=== PATIENT | male | born 1960 | race Caucasian/White ===

== ENCOUNTER 2016-11-08 08:42 | Inpatient (IN) ==
--- NOTE | 2016-11-08 10:03 | Diag Imaging Result Doc PS360 ---
KNEE 3 VIEWS LEFT - 11/08/2016 INDICATION: L knee pain TECHNIQUE: COMPARISON: None FINDINGS: Positioning is improper. No obvious fracture or dislocation. No joint effusion. IMPRESSION: Negative exam. Electronically signed by Aldair Coleman 11/08/2016 10:01 AM
[2016-11-08 10:04] LABS: BASO% 0.6 % (0.0-0.8); EOS# 0.09 X1000 (0.0-0.7); EOS% 0.4 % (0.0-10.0); HEMATOCRIT 34.8 % (42.0-52.0); HEMOGLOBIN 12.1 g/dL (14.0-18.0); IMM GRAN# 0.65 X1000 (0.0-0.04); IMM GRAN% 2.9 % (0.0-0.5); LYMPH# 1.69 X1000 (1.2-3.4); LYMPH% 7.5 % (20.5-51.1); MANUAL DIFF NEEDED? NO; MCH 29.7 PG (27-31); MCHC 34.8 g/dL (33-37); MCV 85.3 FL (81-99); MONO% 6.2 % (1.7-9.3); MPV 9.9 FL (7.4-10.4); NEUT% 82.4 % (42.2-75.2); PLT 485 X1000 (130-400); RBC 4.08 XMIL (4.7-6.1)
--- NOTE | 2016-11-08 10:06 | Diag Imaging Result Doc PS360 ---
CHEST-2 VIEWS - 11/08/2016 INDICATION: SOB TECHNIQUE: COMPARISON: None FINDINGS: Positioning is suboptimal. There is suggestion of an opacity at the medial left lung apex. The appearance is indeterminate. There is also some linear opacity/atelectasis in the left lung base. The right lung is well expanded and clear. Heart size is normal. IMPRESSION: Possible opacity at the medial left lung apex. Follow-up exam recommended. Electronically signed by Aldair Coleman 11/08/2016 10:03 AM
[2016-11-08 10:14] LABS: INR 1.07; PROTIME 11.3 Seconds (9.2-11.7); PTT 27.5 Seconds (22.0-36.0)
--- NOTE | 2016-11-08 10:52 | EKG Report ---
Test Performed on : 11/08/2016 09:59:15 AM Test Reason : Chest Pain Blood Pressure : / mmHG Vent. Rate : 103 BPM Atrial Rate : 103 BPM P-R Int : 122 ms QRS Dur : 088 ms QT Int : 352 ms P-R-T Axes : 047 072 049 degrees QTc Int : 461 ms Sinus tachycardia. Otherwise normal ECG No previous ECGs available Unconfirmed Result
[2016-11-08 11:17] LABS: AGAP 19; ALBUMIN 2.5 g/dL (3.5-5.0); ALKALINE PHOSPHATASE 281 U/L (32-122); BUN 23 mg/dL (8-22); CALCIUM 9.8 mg/dL (8.8-10.2); CHLORIDE 95 mmol/L (98-107); CK PROFILE 21 U/L (24-204); COSMO 285; GOT 13 U/L (10-34); GPT 12 U/L (10-44); POTASSIUM 5.1 mmol/L (3.5-5.1); SODIUM 135 mmol/L (136-145); TCO2 21 mmol/L (25-35); TOTAL BILIRUBIN 0.48 mg/dL (0.20-1.00); TOTAL PROTEIN 7.3 g/dL (6.3-8.3)
[2016-11-08] MEDS ORDERED: ZOSYN 3.375 GM/NS 3.375 GM/50 ML IVPB IV ONE (12:22)
[2016-11-08] MEDS ORDERED: VANCOMYCIN 1 GM/NS 1 GM/250 ML IVPB IV ONE ×2 (12:22→18:00)
--- NOTE | 2016-11-08 12:24 | Diag Imaging Result Doc PS360 ---
EXAM: HEAD W/WO NECK/THOR/ABD/PEL W HISTORY: SPARROW/neck swelling/trouble swallowing/wt loss TECHNIQUE: Dose reduction technique COMPARISON: None. FINDINGS: Head with and without: No parenchymal hemorrhage. No epidural or subdural hematoma. No subarachnoid hemorrhage. No mass identified on this noncontrasted exam. No midline shift. No hydrocephalus. No sinus opacification. Neck with contrast: There is a multi lobulated subcutaneous and soft tissue lesion in the lower neck extending into the upper mediastinum. There are multiple internal septations within this in addition to several air bubbles. This begins just to the right of midline at the level of the mid thyroid and extends laterally into the left pectoralis muscle. No definite bone destruction. Inferiorly this extends to the manubrium. Chest with contrast. Multi lobulated complex lesion in the lower neck, upper chest and anterior mediastinum is again demonstrated. A 10 mm nodule is found inferiorly in the lingular segment of the left upper lobe. No other parenchymal abnormality. No pleural effusions. No thoracic aortic aneurysm or dissection. No cardiomegaly. No enlarged mediastinal or hilar lymph nodes. Abdomen and pelvis with oral and intravenous contrast: There is fatty infiltration of the liver. Normal spleen, pancreas, gallbladder, and adrenal glands. There are small focal areas of abnormal enhancement within each kidney. No hydronephrosis. Normal aorta. No bowel obstruction. Normal appendix. No abscess. No free air. No enlarged lymph nodes. The urinary bladder is moderately distended and appears normal. IMPRESSION: Head: No hemorrhage or mass. Negative exam. NECK: Abscess appearing lesion in the lower neck, anterior chest and mediastinum. This could represent a mucomycosis infection. CHEST: Solitary noncalcified nodule in the left upper lobe Abdomen and pelvis: 1.Findings consistent with pyelonephritis 2.Fatty infiltration of the liver 3.Constipation A preliminary report was called to the emergency room Electronically signed by Gaston Nelson 11/08/2016 12:21 PM
--- NOTE | 2016-11-08 12:54 | PROVIDER DOCUMENTATION ---
This chart was entered by Malina Morrison Scribe, acting as scribe for Cheryle Perez MD. HPI-General Adult - General Chief Complaint: General Adult Stated Complaint: KNOT ON NECK Time Seen by Provider: 11/08/16 09:00 Source: patient Allergies/Adverse Reactions: Patient Allergies Allergy/AdvReac Type Severity Reaction Status Date / Time No Known Allergies Allergy Verified 11/08/16 09:19 Home Medications: Home Medication List Medication Instructions Recorded Confirmed Last Taken Type Atorvastatin Calcium 20 mg PO DAILY 11/08/16 11/08/16 11/07/16 21:00 History 20 MG Dapagliflozin Propanediol [Farxiga] 10 mg PO DAILY 11/08/16 11/08/16 11/08/16 06 :30 History 10 MG Diclofenac Sodium 50 mg PO TID 11/08/16 11/08/16 11/08/16 06:30 History 50 MG Doxycycline 100 mg PO BID 11/08/16 11/08/16 11/08/16 06:30 History 100 MG Gabapentin 300 mg PO TID 11/08/16 11/08/16 11/08/16 06:30 History 300 MG Meclizine HCl [Antivert] 25 mg PO BID PRN 11/08/16 11/08/16 11/07/16 21:00 History 25 MG Metformin HCl 1,000 mg PO DAILY 11/08/16 11/08/16 11/08/16 06:30 History 1000 MG Metoprolol [Lopressor] 25 mg PO DAILY 11/08/16 11/08/16 11/08/16 06:30 History 25 MG Naproxen 500 mg PO DAILY 11/08/16 11/08/16 11/08/16 06:30 History 500 MG Tizanidine HCl [Zanaflex] 4 mg PO HS 11/08/16 11/08/16 11/07/16 21:00 History 4 MG - History of Present Illness -Gen Adult Nature of Presenting Problems: 56 yo M presents to the ER with complaint of knot of L side of neck. Started with trouble swallowing, denies difficulty breathing. States he had L knee pain x2 weeks ago after going to the chiropractor, took an xray and stated it was arthritis. States he has not eaten much in the last two weeks due to difficulty swallowing and has lost 10-15 pounds. Also complains of neck pain and SPARROW. Onset/Duration: reports: 1 week ago Associated Symptoms: reports: weakness. denies: chest pain, shortness of breath Review of Systems - Adult - REVIEW OF SYSTEMS - ADULT Constitutional: denies: chills, fever Eyes: reports: no symptoms reported Ears, Nose, Mouth & Throat: reports: no symptoms reported Cardiovascular: denies: chest pain, palpitations Respiratory: denies: cough, shortness of breath Gastrointestinal: denies: diarrhea, nausea, vomiting Genitourinary: reports: no symptoms reported Musculoskeletal: reports: joint pain, joint swelling Integumentary: reports: no symptoms reported Neurological: reports: no symptoms reported Psychiatric: reports: no symptoms reported Endocrine: reports: no symptoms reported Hematologic/Lymphatic: reports: no symptoms reported Allergic/Immunologic: reports: no symptoms reported All Other Systems: Reviewed and Negative Past History - Adult - PAST MEDICAL HISTORY-ADULT Review of Records: reports: Nursing Assessment Review, Medications Reviewed Cardiovascular: reports: HTN, hyperlipidemia Endocrine/Immune: reports: Diabetes - IMMUNIZATION STATUS Childhood Immunizations: See Nurse Assessment Flu Vaccine: See Nurse Assessment - SOCIAL HISTORY Smoking: non-smoker Substance Use: none/never Alcohol Use Frequency: never Physical Exam-General - PHYSICAL EXAM-ADULT Initial Vital Signs Reviewed: Yes - CONSTITUTIONAL General Appearance: alert, no apparent distress - EYES Eyes: PERRL/EOMI, pink conjunctivae - HEAD, EARS, NOSE, MOUTH & THROAT HENMT: normocephalic/atraumatic, normal ENT inspection, TMs normal, pharynx normal - NECK Neck: supple, other (golf ball size suprasternal knot on L side, below clavicle , not fluctant). negative: C-spine tenderness, limited range of motion - RESPIRATORY Respiratory: no respiratory distress, no accessory muscle use - CARDIOVASCULAR Cardiovascular: normal peripheral pulses, regular rate, rhythm - GASTROINTESTINAL (ABDOMEN) Abdominal Exam: normal bowel sounds, non tender, soft - LYMPHATIC Lymphatic: no adenopathy. negative: axilla node tender, inguinal node tender, enlargement, striations, streaking - MUSCULOSKELETAL Back Exam: no CVA tenderness, no vertebral tenderness Extremity: normal range of motion, non-tender, normal gait, normal inspection - SKIN Integumentary: normal color, warm/dry, erythema (suprasternal k not), tenderness (suprasternal knot) - NEUROLOGIC Neurologic: grossly normal, no motor/sensory deficits - PSYCHIATRIC Psych/Mental Status: normal mood/affect, normal thought content, normal thought process, oriented x 3 Progress - PLAN OF CARE/RESULTS Progress/Plan/Lab Results: Vital Signs - 8 hr 11/08/16 08:50 Temperature 97.4 F L Pulse Rate 110 H Respiratory Rate 18 Blood Pressure 123/77 O2 Sat by Pulse Oximetry 100 Orders Category Date Time Status Cardiac Monitoring DIRECTED Care 11/08/16 09:37 Active Saline Loc NOW Care 11/08/16 09:37 Active CHEST-2 VIEWS [RAD] Stat Exams 11/08/16 09:37 Ordered HEAD/C-SPINE/THORAX/PELVIS/ABD [CT] Stat Exams 11/08/16 09:36 Ordered KNEE 3 VIEWS LEFT [RAD] Stat Exams 11/08/16 09:36 Ordered CBC WITH ELECTRONIC DIFF [HEME] Stat Lab 11/08/16 09:37 Uncollected CK PROFILE [SP CHEM] Stat Lab 11/08/16 09:37 Uncollected COMPREHENSIVE METABOLIC PANEL [CHEM] Stat Lab 11/08/16 09:37 Uncollected D-DIMER [CHEM] Stat Lab 11/08/16 09:37 Uncollected MAGNESIUM [CHEM] Stat Lab 11/08/16 09:37 Uncollected PRO B-NATRIURETIC PEPTIDE Stat Lab 11/08/16 09:37 Uncollected PROTIME WITH INR [COAG] Stat Lab 11/08/16 09:37 Uncollected PTT [COAG] Stat Lab 11/08/16 09:37 Uncollected TROPONIN T Stat Lab 11/08/16 09:37 Uncollected EKG [EKG] Stat Ther 11/08/16 09:37 Ordered Result Diagrams: 11/08/16 09:50 11/08/16 10:33 - EKG 1 Time of EKG reading by physician:: 09:59 EKG Read and Signed by:: Cheryle Perez EKG Interpretation (*Must complete 3 of following elements*): Abnormal Rate: 103 Rhythm: sinus tach [place]: normal QRS: normal [place] Interval: normal ST Wave: normal - XRAY 1 XRAY: Left XRAY Study: Knee Impression: Normal (negative, per radiologist) 2 XRAY Study: Chest Impression: Abnormal (possible opacity at the medial L lung apex, follow up exam recommended, per radiologist) - CT/MRI 1 CT Study: Head Impression: Normal (negative, per radiologist), Discussed w/Radiology 2 CT Study: Neck Impression: Abnormal (abscess appearing lesion in lower neck, anterior chest and mediastinum. This could represent a mucomycosis infection. Per Radiologist ), Discussed w/Radiology 3 CT Study: other (Chest) Impression: Abnormal (Solitary noncalcified nodule in L upper lobe. Per radiologist), Discussed w/Radiology 4 CT Study: Abdomen, Pelvis Impression: Abnormal (findings consistent with pyelonephritis, fatty infiltration of the liver, constipation. Per radiologist), Discussed w/ Radiology - CONSULTS/PCP/HOSPITALIST Notification #1 *Consult/PCP/Hospitalist*: Dr. Hawk Time Discussed: 12:23 Consult Disposition: Admit #2 Consult: Hospitalist - Dr. Waldron Time Discussed: 12:30 Consult Disposition: Admit Departure - Departure Date of Disposition Decision: 11/08/16 Time of Disposition Decision: 12:52 DIAGNOSIS: Neck abscess, Pyelonephritis Disposition: ADMITTED INPATIENT 09 Certified Medical Emergency: Emergent Condition: Stable Referrals and Follow-Ups: Fernando Ray MD [Primary Care Provider] - - Critical Care Note This patient required my direct & personal management of CC.: No This chart was documented by the indicated scribe, (Malina Morrison Scribe) and accurately reflects the services I performed and decisions made by me, Cheryle Perez MD, as attested by the provider's signature.
[2016-11-08 13:41] LABS: URINE CULTURE NEEDED? NO; URINE MICRO REVIEW NEEDED? NO; URINE SOURCE CLEAN CATCH
[2016-11-08 13:44] LABS: UR EPITHELIAL CELLS <10 /HPF (<10); URINE BACTERIA NEGATIVE /HPF; URINE RBC <10 /HPF (<10); URINE WBC <10 /HPF (<10)
[2016-11-08 13:45] LABS: BILIRUBIN URINE NEGATIVE (NEGATIVE); BLOOD URINE NEGATIVE (NEGATIVE); COLOR YELLOW; GLUCOSE URINE >1000 mg/dL (NEGATIVE); LEUKOCYTES URINE NEGATIVE (NEGATIVE); NITRITE URINE NEGATIVE (NEGATIVE); PH URINE 5.5; PROTEIN URINE TRACE mg/dL (NEGATIVE); TURBIDITY URINE CLEAR (CLEAR); UROBILINOGEN URINE NORMAL (NORMAL)
[2016-11-08 13:49] LABS: SP GRAVITY URINE < 1.005
[2016-11-08 14:45] LABS: IRON SATURATION 21 %; TIBC 190 ug/dL; TOTAL IRON 39 ug/dL (53-167); UNBOUND IRON 151 ug/dL (112-346)
--- NOTE | 2016-11-08 15:55 | HISTORY AND PHYSICAL ---
PRIMARY CARE PROVIDER: Fernando Ray MD. CHIEF COMPLAINT: A knot with pain in the neck, difficulty swallowing, sore throat. HISTORY OF PRESENT ILLNESS: Mr. Rui Gold is a 56-year-old, male with a medical history of hypertension, diabetes mellitus type 2, hyperlipidemia, who presents today with swelling in his neck, sore throat, difficulty swallowing, shortness of breath. Apparently, around 2 weeks ago he started having some left knee pain. He presented to [facility] in which he was prescribed diclofenac, Zanaflex for arthritis. Prior to being sent home he also told them that he was having a sore throat but I am not sure if it was fully worked up. This past Friday he noticed swelling around his neck and in his chest that he states he had not noticed prior. He presented to [facility] last Friday in which they performed an x-ray and sent him home with doxycycline and naproxen. The swelling increased. He went to work and they all noticed it , and they sent him to the ER. He has associated symptoms of dysphagia which started approximately 2 weeks ago, shortness of breath with activity, pain in the neck area but denies fever or chills. He does state he has some nausea but no vomiting and he has no other complaints. Workup here per CT revealed that he had an abscess of the lower neck, anterior chest, mediastinum, and a left upper lobe nodule. There was a question of whether it is a mucormycosis infection. Other CT findings revealed pyelonephritis, liver steatosis and constipation. His vital signs are stable. He is in no distress at this time. He does have a white blood cell count of 22,000 and platelet count of 485,000. He is diabetic and his blood glucose was 303 on admit. Given the risk of reactive airway disease and that this abscess is so close to his throat causing dysphagia and shortness of breath, we will go ahead and admit him to CICU. PAST MEDICAL HISTORY: Hypertension, diabetes mellitus type 2, hyperlipidemia, arthritis. PAST SURGICAL HISTORY: Nephrolithiasis and right shoulder tissue biopsy secondary to bursitis. He had a colon biopsy in 2012. He also had right shoulder rotator cuff repair. SOCIAL HISTORY: Denies tobacco, alcohol or illicit drug use. 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 FAMILY HISTORY: Father has Karen Gehrig's. Brother has diabetes. Uncle had an unknown cancer that he from. REVIEW OF SYSTEMS: Fourteen point review of systems were complete and all were negative except for those mentioned in above HPI. Patient does state that he has had a decreased appetite and a 10-15 pound weight loss in 2 weeks. ALLERGIES: No known drug allergies. HOME MEDICATIONS: Atorvastatin 20 mg p.o. daily, Farxiga 10 mg p.o. daily, diclofenac sodium 50 mg p.o. t.i.d., doxycycline 100 mg p.o. twice daily, Neurontin 300 mg p.o. 3 times a day, Antivert 25 mg p.o. twice daily, metformin 1000 mg p.o. daily, metoprolol 25 mg p.o. daily, naproxen 500 mg p.o. daily, Zanaflex 4 mg p.o. nightly. PHYSICAL EXAMINATION: VITAL SIGNS: Temperature 97.4 degrees, heart rate 102, respiratory rate 18, blood pressure 123/76, O2 saturation 95-100% on room air. 5 feet 10 inches tall, 165 pounds. BMI 23.7. GENERAL: Mr. Rui Gold is a 56-year-old male who is in no acute distress. He is able to answer questions appropriately. HEENT: Atraumatic, normocephalic. Pupils equal, round, reactive to light. Extraocular movements intact. Mucous membranes are moist. NECK: Mild jugular distention. Negative for carotid bruits. Large amount of swelling over the area of the thyroid and lower neck that extends into the left chest that is hard upon palpation. CARDIOVASCULAR: S1, S2. Regular rate and rhythm. No rubs, gallops, or murmurs. PULMONARY: Clear to auscultation. Bilateral breath sounds. No accessory muscle use or work of breathing noted. GASTROINTESTINAL: Soft, nontender, nondistended. Positive bowel sounds x4. EXTREMITIES: No edema noted. +2 dorsalis and radial pulses. SKIN: Warm, dry, intact except there is redness around the neck area, and around this area there appears to be an abscess with a little warmth noted. NEUROLOGIC: Alert and oriented x4. Moves all extremities equally. LABORATORY DATA: White blood cells 22,000, hemoglobin 12, hematocrit 34, platelet count 485,000. INR is 1.07, PTT is 27.5, D-dimer 0.92. Sodium 135, potassium 5.1, BUN 23, creatinine 0.8, glucose 303, magnesium 2.0, iron 39, total iron binding capacity 190, saturation 21, unsaturation 151, total bilirubin 0.48, AST 13, ALT 12, alkaline phosphatase 281, CK 21, troponin less than 0.01. Albumin 2.5, pre-albumin is 9.5, cortisol 19.2. Urinalysis: Trace protein, greater than 1000 glucose, 150 ketones. IMAGIN. EKG: Sinus tachycardia, rate 103. 2. Chest x-ray: Possible opacity at the medial left lung apex. 3. Left knee x-ray: Negative examination. ' 4. Head, neck, chest, abdomen, pelvis CT: Head: Negative examination. Neck: Abscessed appearing lesion in the lower neck, anterior chest and mediastinum which could represent a mucormycosis infection. 5. Chest CT: Solitary noncalcified nodule at the left upper lobe. 6. Abdominopelvic CT: Findings consistent with pyelonephritis, fatty infiltration of the liver and constipation. ASSESSMENT AND PLAN: 1. Abscess of the lower neck, anterior chest, mediastinum as evidenced by CT scan. There is question as to whether this is a mucormycosis infection. He does have leukocytosis although he is afebrile. The area around the neck and down the left chest is hard to palpate and is enlarged. Will cover with Vancomycin and Zosyn for now. Dr. Hawk has been consulted and Dr. Dykes has been consulted. We will follow up on an HIV testing. 2. Pyelonephritis: Antibiotic coverage continued. He does have complaints consistent with burning on urination. 3. Liver steatosis: Liver enzymes are negative. 4. Constipation. We will add stool softener. 5. Hypertension. Currently blood pressure is stable. We will continue home medications. 6. Diabetes mellitus type 2. Pattern blood glucoses, sliding scale insulin, diabetic diet. 7. Hyperlipidemia. We will resume home medications. 8. DVT prophylaxis: SCDs. 9. Anemia which is a low-grade mild iron-deficiency anemia with iron level of 39. 10. Protein Calorie Malnutrition. Diabetic Diet; supplements with meals Dictated by SHELBIE Dubon for Raman Waldron MD cc: SHELBIE Dubon MD Gregory S. Cheatham, MD Seen and examined patient. I agree with the above plan. Patient with Anterior Neck abscess extending to mediastinum. NO immediate airway compromise. Continue with current antibiotics. I have discussed the case personally with Dr. Hawk. WES ACEVES
[2016-11-08] MEDS ORDERED: VANCOMYCIN IV PER PHARMACY MISC SCH (16:06)
[2016-11-08] MEDS ORDERED: ZOFRAN IV PRN (16:06)
[2016-11-08] MEDS ORDERED: ANTIVERT PO PRN (16:06)
[2016-11-08] MEDS: HUMULIN R SUBQ SCH ×2 (16:52→21:28)
[2016-11-08] MEDS: FLAGYL 500 MG/NS 500 MG/100 ML IVPB IV SCH ×2 (16:53→21:29)
[2016-11-08] MEDS: ZOSYN 3.375 GM/NS 3.375 GM/50 ML IVPB IV SCH (17:55)
--- NOTE | 2016-11-08 19:16 | CONSULTATION ---
DATE OF CONSULTATION: 11/08/2016 REQUESTING PHYSICIAN: Emergency Department. REASON FOR CONSULTATION: Neck abscess. HISTORY OF PRESENT ILLNESS: A 56-year-old male with medical history of hypertension, diabetes mellitus type 2, hyperlipidemia presented to the emergency department with neck swelling, sore throat with difficulty swallowing and some shortness of breath. The patient does report a vague history of having some left knee pain starting 2 weeks ago but also had a sore throat at that time. On Friday he started noticing swelling around his neck and chest that he had not previously noted. He had a chest x-ray done at that time and was sent home on antibiotics. The neck swelling increased. He still had some significant symptoms of dysphagia with some difficulty breathing. He came back to the emergency department and had a CT scan that showed an abscess of the lower neck, anterior chest mediastinum and left upper lobe nodule. There is some question about the potential for this infection. At the current time the patient is tender in the neck and left chest wall but he is in no acute respiratory distress. He was admitted to the [facility] given the potential for airway issues. I was asked to evaluate for the neck abscess. PAST MEDICAL HISTORY: Hypertension, diabetes mellitus type 2, hyperlipidemia, arthritis. PAST SURGICAL HISTORY: Lithotripsy, right shoulder surgery, previous colonoscopy with biopsy, right rotator cuff surgery. HOME MEDICATIONS: As in the hospitalist's note as dictated 11/08/2016 and reviewed by myself. ALLERGIES: None. SOCIAL HISTORY: Denies alcohol, tobacco or illicit drugs. He denies any kind of outside travel or drinking of well water. FAMILY HISTORY: Positive for Karen Gehrig's disease, diabetes. REVIEW OF SYSTEMS: A full 10 point review of systems was obtained and negative as specified in HPI. PHYSICAL EXAMINATION: Vital Signs: Patient is currently afebrile. He has a heart rate in the low 100s. Respiratory rate is nonlabored. Blood pressure stable. General Examination: No acute distress, male, looks stated age. HEENT: Normocephalic, atraumatic. Pupils equal, round, react to light. Mucous membranes moist. Oropharynx benign. Neck: Swelling over the area of the thyroid and lower neck that extends to the left chest wall. There appears to be some mild amount of fluctuance but it is hard and indurated, and there is some erythema associated with this that does extend onto the left chest wall. Cardiovascular: Mildly tachycardic. Lungs: Grossly clear. Abdomen: Soft, nontender, nondistended. Extremities: Moves all extremities well. Neurologic: Grossly intact. Skin: No signs of jaundice. Vascular: All extremities perfused. LABORATORY: White blood cell count 22, hematocrit 34, platelet count 485,000. CT scan independently reviewed and radiology report reviewed. Does have a neck abscess noted. ASSESSMENT AND PLAN: A 56-year-old male with a lower neck abscess extending into the anterior chest wall mediastinum by CT scan. 1. Abscess of the neck. At this time patient is on antibiotics. There is concern about the potential etiology of this infection. I suspect given its location and the potential for airway obstruction he needs to have this drained in the operating room with a secure airway. I discussed this with the patient. I will keep him NPO overnight just in case he has difficulty with his airway and I will plan for surgical intervention in the morning. The risks, benefits, and alternatives were discussed. All questions answered. 2. Pyelonephritis currently being covered by antibiotics. 3. Liver steatosis at this time. Monitor. 4. Constipation at this time. He has been placed on a stool softener. 5. Multiple medical comorbidities currently being managed by the hospitalist service. cc: MD Raman Burks MD
[2016-11-08] MEDS: PERICOLACE PO SCH (21:30)
[2016-11-08] MEDS: NEURONTIN PO SCH (21:30)
[2016-11-08] MEDS: ZANAFLEX PO SCH (21:30)
[2016-11-09] MEDS: ZOSYN 3.375 GM/NS 3.375 GM/50 ML IVPB IV SCH ×2 (00:28→05:57)
[2016-11-09] MEDS: FLAGYL 500 MG/NS 500 MG/100 ML IVPB IV SCH (02:42)
[2016-11-09 05:38] LABS: BASO% 0.7 % (0.0-0.8); EOS# 0.06 X1000 (0.0-0.7); EOS% 0.2 % (0.0-10.0); HEMOGLOBIN 11.6 g/dL (14.0-18.0); IMM GRAN# 1.24 X1000 (0.0-0.04); IMM GRAN% 5.1 % (0.0-0.5); LYMPH# 1.91 X1000 (1.2-3.4); LYMPH% 7.8 % (20.5-51.1); MANUAL DIFF NEEDED? YES; MCH 29.9 PG (27-31); MCHC 34.1 g/dL (33-37); MCV 87.6 FL (81-99); MONO# 1.79 X1000 (0.11-0.59); MONO% 7.3 % (1.7-9.3); NEUT% 78.9 % (42.2-75.2); PLT 566 X1000 (130-400); RBC 3.88 XMIL (4.7-6.1)
[2016-11-09 05:47] LABS: INR 1.09; PROTIME 11.5 Seconds (9.2-11.7); PTT 33.5 Seconds (22.0-36.0)
[2016-11-09 05:51] LABS: HEMOGLOBIN A1C 7.5 % (4.8-6.0)
[2016-11-09] MEDS: LOPRESSOR PO SCH (05:57)
[2016-11-09 06:01] LABS: AGAP 29; ALBUMIN 2.7 g/dL (3.5-5.0); ALKALINE PHOSPHATASE 272 U/L (32-122); BUN 21 mg/dL (8-22); CALCIUM 9.4 mg/dL (8.8-10.2); CHLORIDE 100 mmol/L (98-107); COSMO 283; GOT 14 U/L (10-34); GPT 11 U/L (10-44); MAGNESIUM 2.2 mg/dL (1.5-2.7); POTASSIUM 4.8 mmol/L (3.5-5.1); SODIUM 139 mmol/L (136-145); TCO2 10 mmol/L (25-35); TOTAL BILIRUBIN 0.39 mg/dL (0.20-1.00); TOTAL PROTEIN 7.5 g/dL (6.3-8.3)
[2016-11-09] MEDS: HUMULIN R SUBQ SCH ×4 (06:09→20:47)
--- NOTE | 2016-11-09 06:20 | PROGRESS NOTE ---
DATE: 11/09/2016 SUBJECTIVE: No major issues. OBJECTIVE: Vital Signs: Patient is currently afebrile. He is mildly tachycardic in the lower 100s. Otherwise, vital signs are stable. General: No acute distress. Neck: The area to his neck that was swollen seems about the same, maybe slightly bigger. The erythema has not seemed to spread. Cardiovascular: Mildly tachycardic. Lungs: Grossly clear. Abdomen: Soft, nontender, nondistended. Extremities: Moves all extremities. Neurologic: Grossly intact. Skin: As noted above. LABORATORY: White blood cell count 24, which is up from 22. Hematocrit 34, platelet count 566,000. ASSESSMENT AND PLAN: A 56-year-old male with neck abscess. Neck abscess. At this time, we will plan for surgical intervention and drainage. Further recommendations after the drainage. cc: MD Raman Burks MD
[2016-11-09 06:50] LABS: BANDS 18 % (0-1); LYMPHS 10 % (21-51); MONO 4 % (1-9)
[2016-11-09] MEDS ORDERED: DILAUDID ONE (09:05)
[2016-11-09 09:06] LABS: HIV ANTIBODY SCREEN SEE COMMENTS
--- NOTE | 2016-11-09 09:12 | OPERATIVE NOTE ---
PROCEDURE DATE: 11/09/2016 PREOPERATIVE DIAGNOSIS: Neck and mediastinal abscess. POSTOPERATIVE DIAGNOSIS: Neck and mediastinal abscess. PROCEDURE: Incision and drainage of neck and mediastinal abscess. SURGEON: Oziel Hawk MD. DATA MINER: None. ANESTHESIA: General endotracheal. INTRAOPERATIVE FINDINGS: Abscess contained at least 50 mL of purulence that tracked significantly down to the mediastinum right to the aortic arch in the innominate vein. All areas were bluntly dissect safely as possible. COMPLICATIONS: None at time of dictation. ESTIMATED BLOOD LOSS: 5 mL. SPECIMENS REMOVED: Culture from the wound. BRIEF HISTORY: The patient is a 56-year-old male presenting with a neck abscess that tracked to his mediastinum. It was felt the patient would benefit from drainage. The risks, benefits, and alternatives were discussed. All questions answered. DESCRIPTION OF PROCEDURE: After informed consent was obtained, patient brought to the operative theatre, transferred to the operating table and placed supine position. General endotracheal anesthesia was then performed without complication. A formal time-out was then performed confirming patient, date, and procedure. All were in agreement. At that time, attention turned to the neck. After this was prepped and draped in sterile fashion, we made a cruciate incision over the most enlarged area of the neck and encountered purulence which we sent for culture. We had to bluntly probe into several other cavities. These cavities tract under the sternum and the manubrium to the mediastinum. We dissected all the way 6 or 7 cm under the manubrium. I was able to palpate the aortic arch and the innominate vein. Given the risk of injuring these and potential causing pleural contamination, I elected not to break up any more loculations. We irrigated the area copiously. We sent cultures from the wound. We placed a half-inch iodoform gauze into the wound and packed it. The patient tolerated the procedure well and was transferred to the recovery room in stable condition. Postoperatively, we got a chest x-ray given the blunt dissection to the mediastinum to rule out pneumothorax. cc: MD Raman Burks MD
[2016-11-09] MEDS ORDERED: NAPROXEN 500 MG PO SCH (09:15)
[2016-11-09] MEDS ORDERED: VOLTAREN PO SCH (09:15)
[2016-11-09] MEDS ORDERED: DOXYCYCLINE PO SCH (09:15)
[2016-11-09] MEDS ORDERED: NON-FORMULARY MED PO SCH (09:15)
--- NOTE | 2016-11-09 09:42 | Diag Imaging Result Doc PS360 ---
EXAM: CHEST-PORTABLE HISTORY: drainage of mediastinal abscess TECHNIQUE: Portable upright AP COMPARISON: 11/08/2016 FINDINGS: No postprocedural pneumothorax. Soft tissue prominence along the aortic arch is similar to the prior exam. No pleural effusions identified. The cardiomegaly. The vessels are not distended. IMPRESSION: Stable chest. No postprocedural pneumothorax. Electronically signed by Gaston Nelson 11/09/2016 9:40 AM
[2016-11-09] MEDS: PRILOSEC PO SCH (10:08)
[2016-11-09] MEDS: LIPITOR PO SCH (10:09)
[2016-11-09] MEDS: NEURONTIN PO SCH ×3 (10:09→20:48)
[2016-11-09] MEDS: GLUCOPHAGE PO SCH (10:11)
[2016-11-09] MEDS: NON-FORMULARY MED PO SCH (10:12)
[2016-11-09] MEDS: PERICOLACE PO SCH ×2 (10:13→21:15)
[2016-11-09] MEDS ORDERED: MORPHINE IV PRN (11:26)
[2016-11-09] MEDS: VANCOMYCIN 1,700 MG in NS 250 ML IV SCH (11:58)
--- NOTE | 2016-11-09 12:44 | PROGRESS NOTE ---
DATE: 11/09/2016 SUBJECTIVE: This patient just came back from surgery. He is completely alert and oriented x3. He is breathing fine. He is not complaining of chest pain or shortness of breath. He is complaining of mild left knee discomfort/pain. He is swallowing fine and he is tolerating fluids. OBJECTIVE: Vital Signs: Temperature 97.9 degrees, pulse 114, respiratory rate 18, blood pressure 131/69, and oxygen saturation 100% on room air. HEENT: Head normocephalic. No trauma. PERRLA. Neck: He has a clean dressing. He just came back from surgery. The dressing is clean. No signs of active bleed. Since this patient just came back from surgery, I did not remove the dressing to check under this. Chest: Clear to auscultation. No wheezing. No rales. Abdomen: Soft, nontender, nondistended. No hepatosplenomegaly. Extremities: Mild left knee swelling and painful to palpation. It is not red and is not warm. Neurologic: The patient is alert and oriented x3. No focal deficits. LABORATORY: WBC 24.4, hemoglobin 11.6, hematocrit 34, platelets 566,000. Sodium 139, potassium 4.8, chloride 108, bicarbonate 10, BUN 21, glucose 150. Hemoglobin A1c is 7.5. Calcium 9.4, magnesium 2.2, albumin 2.7. ASSESSMENT AND PLAN: 1. Abscess at the level of the lower neck and anterior chest and mediastinum as evidenced by CT scan, status post incision and drainage. This patient just came back from surgery. He is not complaining of shortness of breath or dysphagia. We will continue with clear liquid diet and pain management. Continue with antibiotics. Dr. Dykes is following this patient. I will add morphine and [place] 5 to his medications, and will avoid more nephrotoxic medications. 2. Pyelonephritis. Continue with antibiotics. Infectious Disease Department is following this patient. 3. Left knee swelling. Orthopedic Surgery has been consulted. Probably will need to get some fluid from it. 4. Liver steatosis. Liver enzymes are negative, but alkaline phosphatase is elevated. We will keep an eye on that. 5. Constipation. Continue with stool softener. 6. Hypertension. Stable. 7. Type 2 diabetes. Continue with sliding scale insulin and pattern of blood sugar. 8. Hyperlipidemia: Continue with home medications. 9. Deep vein thrombosis prophylaxis provided by [facility]. 10. Anemia. Aware. Continue to monitor. cc: MD Raman Petty MD
--- NOTE | 2016-11-09 13:17 | ECHO REPORT ---
ORDER DATE: 11/09/2016 INTERPRETING PHYSICIAN: Dr. Luis Miguel Fernandez ECHOCARDIOGRAPHIC MEASUREMENTS: Interventricular septum: 1.2 cm. Left ventricular posterior wall: 1.0 cm. Diastolic diameter: 3.9 cm. Left atrium: 3.2 cm. Aortic root: 3.2 cm. SUMMARY OF THE 2-DIMENSIONAL IMAGIN. Normal left ventricular cavity size. Estimated ejection fraction of 60%. Endocardium not well visualized in all views. Aortic valve leaflets are trileaflet. Mitral valve was normal. Tricuspid valve was normal. 2. Pulmonic valve was normal. 3. There is mild mitral regurgitation. Mild tricuspid regurgitation. Peak velocity across the tricuspid valve was 2.7 m/sec. 4. Peak velocity across the aortic valve less than 2 m/sec. By Doppler studies there is no aortic stenosis or regurgitation. CONCLUSIONS: 1. Normal left ventricular cavity size. Estimated ejection fraction of 60%. There is no aortic stenosis or regurgitation. There is mild mitral regurgitation. 2. There is no pericardial effusion or obvious intracardiac mass or thrombus seen. cc: MD Ivan Sierra MD Raphael K. Quansah, MD
--- NOTE | 2016-11-09 15:13 | CONSULTATION ---
DATE OF CONSULTATION: 11/09/2016 CONCLUSION: The patient has a disseminated infection which is due to a gram-positive coccus which I think most likely will be identified as Staph aureus. He appears to have an abscess in his neck extending into his chest. He also has pain and swelling in his left knee and I think it is possible that he has a septic left knee arthritis. With many areas involve with this infection I think it is possible that he has endocarditis as well. Also he may have an immunoglobulin deficiency as well. The patient's CT scan shows that he may have pyelonephritis. His urinalysis showed no white cells or bacteria which I think would make a urinary tract infection unlikely. If he indeed does have a pyelonephritis then I suspect it would be the same organism that is in his bloodstream and presumably causing infection in his left knee. RECOMMENDATIONS: I agree with treating the patient with vancomycin. I think this can be used as a single agent pending final identification of the organism. I am going to draw immunoglobulin levels. I have also ordered an echocardiogram. I have requested that Dr. Garvin tomorrow consult on the patient and if he agrees with it to do an arthrocentesis. DISCUSSION: The patient tells me that approximately 2 weeks ago he began having some swelling in his neck and chest. He also had dysphagia. He was unable to the eat well and has lost about 15 pounds. He also had the simultaneous onset of pain and swelling in his left knee. The patient tells me that about a month or so ago he had an insect bite on his left leg that caused erythema but cleared spontaneously. Thus far, studies on the patient show a CBC with a white count of 24,490, hemoglobin 11.6, and platelet count of 566,000. Creatinine 0.9. The GFR is greater than 60. Liver function studies are normal except for an alkaline phosphatase of 27.2. Urinalysis did not show any white cells or bacteria. Blood cultures are growing gram-positive cocci. The urine culture is pending. CT scan of the neck and chest showed an abscess involving the neck and extending into the chest. There also was a left upper lobe nodule in the lung. The CAT scan also showed evidence of pyelonephritis. A Gram stain of the material obtained at surgery today also shows gram positive cocci. PAST MEDICAL HISTORY/REVIEW OF SYSTEMS: Eyes and Ears: Patient does not have any difficulty hearing or seeing. Neck and chest: See above with the description of swelling in the neck and the chest. Respiratory: No cough or shortness of breath. GI: The patient initially had a dysphagia and has lost weight as mentioned above. He does not have diarrhea and he has not noticed any blood in his stool. Genitourinary: No dysuria or flank pain. The patient also had nausea. Bones, joints, muscles: As mentioned above, the patient has pain in his knee and on exam it appeared to be swollen. Skin: No rash. As mentioned above, there was an insect bite on his left leg about a month ago. Endocrine: The patient is a diabetic but he does not have thyroid disease. Neurologic: No seizures or loss of motor or sensory function. The remainder of the patient's review of systems was completed and was negative. PREVIOUS HOSPITALIZATIONS AND OPERATIONS: He has had rotator cuff surgery on the right shoulder. He has had surgery for renal calculi. He has also had a biopsy of his colon. MEDICAL DISEASES: Positive for diabetes mellitus, hypertension, hyperlipidemia, and arthritis. INFECTIOUS DISEASE HISTORY: Negative for pneumonia and UTI. FAMILY HISTORY: Positive for diabetes mellitus, hypertension, myocardial infarction, and amyotrophic lateral sclerosis. SOCIAL HISTORY: The patient lives in [place]. He is single. He does not have any pets. 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 The patient does not smoke, drink alcoholic beverages or abuse drugs. MEDICATIONS: The patient's home medications include Zanaflex, naproxen, doxycycline, diclofenac, meclizine, gabapentin, metformin, atorvastatin, Lopressor, and Farxiga. PHYSICAL EXAMINATION: Vital Signs: Temperature is 97.5 degrees, pulse 114, respiration is 13, blood pressure 146/75. Patient is 5 feet 10 inches tall, and weighs 149 pounds. General: This is a somewhat ill-appearing, middle-aged male. He is in no acute distress. Head, eyes, ears, nose, and throat: Can hear my spoken words and see near objects. No drainage was noted from the nose or ears. There were no white patches on his tongue. Neck: No meningismus. Lungs: Clear to auscultation. Cardiovascular: Heart rate was regular. I did not hear a murmur. Abdomen: Soft and nontender. Bones, joints, muscles: There is some swelling in the left knee and when I passively moved the knee it was painful. Neurologic: Patient is alert. He can move his extremities. There is no tremor. His sensation is intact to touch. His memory as regarding his medical history appeared intact. Integument: No rash noted. Thank you for the consult. cc: Ivan Dykes MD
[2016-11-09] MEDS ORDERED: DIPRIVAN 1% ONE (15:57)
[2016-11-09] MEDS: ZANAFLEX PO SCH (20:48)
[2016-11-10 06:02] LABS: BASO% 0.5 % (0.0-0.8); EOS# 0.18 X1000 (0.0-0.7); HEMATOCRIT 32.8 % (42.0-52.0); HEMOGLOBIN 11.2 g/dL (14.0-18.0); IMM GRAN# 0.85 X1000 (0.0-0.04); IMM GRAN% 4.9 % (0.0-0.5); LYMPH# 1.54 X1000 (1.2-3.4); LYMPH% 8.9 % (20.5-51.1); MANUAL DIFF NEEDED? YES; MCH 29.9 PG (27-31); MCHC 34.1 g/dL (33-37); MCV 87.7 FL (81-99); MONO# 1.17 X1000 (0.11-0.59); MONO% 6.7 % (1.7-9.3); MPV 9.9 FL (7.4-10.4); PLT 529 X1000 (130-400); RBC 3.74 XMIL (4.7-6.1)
--- NOTE | 2016-11-10 06:15 | PROGRESS NOTE ---
DATE: 11/10/2016 SUBJECTIVE: Patient doing well. No major issues after his incision and drainage. He did have a chest x-ray after his incision and drainage which did not show a pneumothorax. OBJECTIVE: Vital Signs: Patient is currently afebrile. His vital signs are stable. General Examination: No acute distress. Neck: Less swollen. Packing removed. Some mild purulence still draining but overall, wound looks better. Cardiovascular: Regular rate and rhythm. Lungs: Grossly clear. Abdomen: Soft, nontender, nondistended. Extremities: Moves all extremities. Some mild swelling noted to the left knee. Vascular: All extremities perfused. Laboratory: CBC is currently pending. He did have blood cultures that a preliminary 1 has come back as gram-positive cocci. ASSESSMENT AND PLAN: A 56-year-old, male status post incision and drainage in a neck and mediastinal abscess, now with bacteremia. 1. Status post incision drainage of neck abscess. At this time, packing removed. We will keep him on antibiotics. We will allow for speciation of the microbes. It is okay for the patient to shower. We will monitor his wound. 2. Left knee swelling. By review of Dr. Dykes's note, it sounds like orthopedics is going to be consulted for potential arthrocentesis. 3. Bacteremia. At this time, patient is on antibiotics. Infectious disease is following. We will defer to them. cc: Oziel Hawk MD
[2016-11-10 06:18] LABS: AGAP 17; BUN 17 mg/dL (8-22); CALCIUM 9.3 mg/dL (8.8-10.2); CHLORIDE 100 mmol/L (98-107); COSMO 278; POTASSIUM 4.2 mmol/L (3.5-5.1); SODIUM 136 mmol/L (136-145); TCO2 19 mmol/L (25-35)
[2016-11-10] MEDS: VANCOMYCIN 1,700 MG in NS 250 ML IV SCH (06:18)
[2016-11-10] MEDS: HUMULIN R SUBQ SCH ×4 (06:44→21:33)
[2016-11-10 07:14] LABS: BANDS 4 % (0-1); LYMPHS 12 % (21-51); MONO 8 % (1-9)
[2016-11-10] MEDS: LOPRESSOR PO SCH ×2 (07:32→08:54)
[2016-11-10] MEDS: NEURONTIN PO SCH ×3 (08:52→21:32)
[2016-11-10] MEDS: PRILOSEC PO SCH (08:53)
[2016-11-10] MEDS: GLUCOPHAGE PO SCH (08:53)
[2016-11-10] MEDS: PERICOLACE PO SCH ×3 (08:53→22:07)
[2016-11-10] MEDS: LIPITOR PO SCH (08:54)
[2016-11-10] MEDS: NON-FORMULARY MED PO SCH (09:45)
--- NOTE | 2016-11-10 16:17 | CONSULTATION ---
DATE OF CONSULTATION: 11/10/2016 CHIEF COMPLAINT: Left knee pain. HISTORY OF PRESENT ILLNESS: A 56-year-old male who has been admitted to the hospital for sepsis and a mediastinal abscess. He was noted have some soreness and swelling over the left knee. I was consulted for aspiration and orthopedic evaluation to rule out sepsis of the knee. He reports no significant injury about the knee. He states this started hurting a little bit over the past week. He does report a history of arthritis about the knee. PAST MEDICAL HISTORY AND REVIEW OF SYSTEMS: Up-to-date and accurate per the hospital chart. PHYSICAL EXAM: Examination of left knee reveals a 1+ effusion. There is minimal redness or warmth. There is relatively good range of motion. He is stable on exam of the knee. There is a positive straight leg raise. ASSESSMENT: Synovitis in the knee. PLAN: Patient underwent aspiration of the knee roughly 8 mL of clear straw-colored fluid. This appeared to have no evidence of infection, was normal joint fluid appearance. It was sent for cultures for aerobic and anaerobic cultures. Currently I do not believe he has an infection about the knee. We sent the specimen off just to verify this. He can continue his IV antibiotics for his mediastinal abscess. cc: Pako Garvin MD
--- NOTE | 2016-11-10 16:24 | OPERATIVE NOTE ---
PROCEDURE DATE: 11/10/2016 PREOPERATIVE DIAGNOSIS: Synovitis left knee. POSTOPERATIVE DIAGNOSIS: Synovitis left knee. PROCEDURE: Aspiration left knee joint. SURGEON: Steve Garvin MD COMPLICATION: None. ANESTHESIA: None. OPERATION IN DETAIL: This 56-year-old male with sepsis and thoracic abscess reports soreness over the left knee. He had a noted 1+ effusion about the knee. The patient underwent sterile prep over the anterolateral aspect of the suprapatellar pouch with alcohol. An 18-gauge needle was introduced in the joint. Roughly 8 mL of clear joint colored fluid was obtained. The needle was withdrawn and a bandage placed over this without complication or bleeding. The specimen was sent for cultures for aerobic and anaerobic cultures. No complications were noted. cc: Pako Garvin MD
--- NOTE | 2016-11-10 17:18 | PROGRESS NOTE ---
DATE: 11/10/2016 SUBJECTIVE: This patient states that he is feeling better, he is complaining of mild pain at the level of the of the upper thoracic area. He denies nausea, vomiting, diarrhea, constipation. He states that he has been having loose stools and that this happens when he takes metformin 1000 mg twice a day. I decreased the dose to 500 twice a day. This is the dose that he takes at home. OBJECTIVE: Vital Signs: Temperature 98 degrees, pulse 99, respiratory rate 19, blood pressure 124/70, oxygen saturation 100% on room air. HEENT: Head normocephalic. No trauma. PERRLA. Neck: Supple. No JVD. He has a clean dressing. No signs of active bleed. Chest: He has some inflammation at the level of upper portion of the chest, clear to auscultation. No wheezing. Abdomen: Soft, nontender, nondistended. No hepatosplenomegaly. Extremities: Mild left knee swelling and painful to palpation and mobilization. It is not red. It is not warm. Neurological: The patient is alert and oriented x3. No focal deficits. LABORATORY: WBC 17.3, hemoglobin 11.2, hematocrit 32.8, platelets 529,000. Sodium 136, potassium 4.6, chloride 100, bicarbonate 19, BUN 17, creatinine 0.9, glucose 185, calcium 9.3. ASSESSMENT AND PLAN: 1. Abscess at the level of the lower neck and anterior chest and mediastinum as evidenced by CT scan status post incision and drainage. He is not complaining of shortness of breath or of dysphagia. He is having mild pain to palpation at the level of the upper chest with some inflamed area. At this point, we will continue with antibiotics. Dr. Dykes is following this patient. 2. Pyelonephritis. Continue with antibiotics. Infectious Disease Department is following this patient. 3. Left knee swelling. Orthopedic Surgery has been consulted and they did an arthrocentesis, pending resolved. 4. Liver steatosis, liver enzymes are negative, but alkaline phosphatase was a little bit elevated. I will ask for a CMP for tomorrow to monitor this. 5. Constipation. Continue with stool softener. 6. Hypertension, stable. 7. Type 2 diabetes. Continue with the sliding scale and pattern of blood sugar, metformin has been decreased to 500 mg p.o. twice a day. 8. Hyperlipidemia. Continue with home medication. 9. Deep venous thrombosis prophylaxis provided by [employer]. 10. Anemia, continue to monitor. cc: Altaf Gordon MD
[2016-11-10] MEDS ORDERED: GLUCOPHAGE PO SCH (21:00)
[2016-11-10] MEDS: TYLENOL PO PRN (21:33)
[2016-11-10] MEDS: ZANAFLEX PO SCH (21:33)
[2016-11-11] MEDS: VANCOMYCIN 1,700 MG in NS 250 ML IV SCH (01:02)
[2016-11-11 05:24] LABS: BASO% 0.9 % (0.0-0.8); EOS% 1.4 % (0.0-10.0); HEMATOCRIT 33.7 % (42.0-52.0); HEMOGLOBIN 11.7 g/dL (14.0-18.0); IMM GRAN# 0.64 X1000 (0.0-0.04); IMM GRAN% 4.6 % (0.0-0.5); LYMPH# 1.71 X1000 (1.2-3.4); LYMPH% 12.2 % (20.5-51.1); MANUAL DIFF NEEDED? YES; MCH 30.4 PG (27-31); MCHC 34.7 g/dL (33-37); MCV 87.5 FL (81-99); MONO# 1.43 X1000 (0.11-0.59); MONO% 10.2 % (1.7-9.3); MPV 9.9 FL (7.4-10.4); NEUT% 70.7 % (42.2-75.2); PLT 532 X1000 (130-400); RBC 3.85 XMIL (4.7-6.1)
[2016-11-11] MEDS: HUMULIN R SUBQ SCH ×5 (05:42→20:24)
--- NOTE | 2016-11-11 05:53 | EKG Report ---
Test Performed on : 11/09/2016 06:23:37 AM Test Reason : no order in [employer] Blood Pressure : / mmHG Vent. Rate : 114 BPM Atrial Rate : 114 BPM P-R Int : 092 ms QRS Dur : 098 ms QT Int : 350 ms P-R-T Axes : 041 072 035 degrees QTc Int : 482 ms Sinus tachycardia. with short [place] Otherwise normal ECG When compared with ECG of 08-NOV-2016 09:59, (Unconfirmed) [place] interval has decreased Confirmed by Jordon GAMA, Jamel Chowdary ([id number]) on 11/12/2016 8:25:50 AM
[2016-11-11 05:54] LABS: AGAP 16; BUN 12 mg/dL (8-22); CALCIUM 9.1 mg/dL (8.8-10.2); CHLORIDE 98 mmol/L (98-107); COSMO 278; POTASSIUM 4.4 mmol/L (3.5-5.1); SODIUM 137 mmol/L (136-145); TCO2 23 mmol/L (25-35)
[2016-11-11 06:03] LABS: EOS 2 % (1-10); LYMPHS 22 % (21-51); MONO 6 % (1-9)
--- NOTE | 2016-11-11 06:13 | PROGRESS NOTE ---
DATE: 11/11/2016 SUBJECTIVE: Patient doing okay. No major issues. OBJECTIVE: Vital Signs: Patient is currently afebrile. His vital signs are stable. Neck is less swollen but there is some area of swelling on his left clavicle, but the erythema has improved. Cardiovascular: Regular rate and rhythm. Lungs: Grossly clear. Abdomen: Soft, nontender, nondistended. LABORATORY: White blood cell count is 14, which is decreasing his blood cultures preliminary have Staph aureus in his neck, also has gram positive cocci, most likely Staph aureus. ASSESSMENT AND PLAN: A 56-year-old male status post incision and drainage. Neck with a mediastinal abscess, now with bacteremia. 1. Status post incision and drainage. Neck abscess. At this time, he is clinically doing well. He does have this area above his left collarbone which was not fluctuant on the initial day of operation and I could not drain anything in the operating room. We will need to watch this area and would recommend continued antibiotics although it come to the point where he could be discharged home on p.o. antibiotics. 2. Left knee swelling. Patient did have an aspiration done by Dr. Garvin. 3. Bacteremia. At this time, patient is on antibiotics likely the same organism in his neck. I will defer duration of antibiotics to Dr. Dykes. cc: Oziel Hawk MD
--- NOTE | 2016-11-11 07:00 | PROGRESS NOTE ---
DATE: 11/11/2016 PRESENT ILLNESS: The patient has an oxacillin sensitive Staphylococcus aureus bacteremia which originates from the abscesses in his neck and chest. He had some pain in his left knee and an effusion. However, it does not look like the knee is actually infected in view of the fact that when Dr. Garvin performed an arthrocentesis, the fluid that he pulled off the knee was clear. The patient's echocardiogram does not show evidence of endocarditis either. Exactly why the patient developed this is uncertain to me at this time. He did mention that he had an insect bite on his left leg that caused erythema but cleared. It would not seem to me that this is a likely place for the infection to have come from. MEDICATIONS: The patient is receiving vancomycin currently. PHYSICAL EXAMINATION: Vital Signs: Temperature is 97.8 degrees, pulse 95, respirations 20, blood pressure 117/60. General: This is a somewhat ill-appearing, middle-aged male. He is in no acute distress. Head, Eyes, Ears, Nose, and Throat: No drainage noted from the nose or ears. Neck: The patient's incision is somewhat erythematous and is draining purulent fluid. Chest: The patient has swelling in the upper part of the left chest. Lungs: Clear to auscultation. Cardiovascular: Regular heart rate. Abdomen: Soft and nontender. Extremities: The left knee is less swollen. LAB AND X-RAY: I do not see any new x-ray for today. An echocardiogram did not show any vegetations. Creatinine is 0.6. GFR is greater than 60. Antibody to HIV was negative. Immunoglobulin levels including IgG and IgA were normal. A culture from the left knee is pending. Blood culture is growing oxacillin sensitive Staphylococcus aureus. Culture from the neck is growing a gram positive coccus which has not yet been identified but almost certainly will be the same staphylococcus that is in the patient's blood. ASSESSMENT AND PLAN: I have switched the patient from vancomycin to cefazolin. I have ordered 2 blood cultures to be drawn tomorrow. As mentioned above, the culture from the patient's knee is pending. For now, I would treat the patient with intravenous Ancef for at least 2 weeks and probably longer. In view of the fact of the abscesses that he has in his neck and chest, he may well need 6 weeks of intravenous antibiotics. COMORBIDITIES: The patient's comorbidities is that he does have diabetes mellitus. That is about the only comorbidity I can see on the patient unless the insect bite he reported earlier was the cause of his infection. I doubt this is the situation though. cc: Ivan Dykes MD
[2016-11-11] MEDS: NEURONTIN PO SCH ×3 (08:30→20:16)
[2016-11-11] MEDS: KEFZOL 2 GM/D5W 2 GM/50 ML IVPB IV SCH ×3 (08:30→20:17)
[2016-11-11] MEDS: PRILOSEC PO SCH (08:30)
[2016-11-11] MEDS: LOPRESSOR PO SCH (08:30)
[2016-11-11] MEDS: PERICOLACE PO SCH ×3 (08:30→20:29)
[2016-11-11] MEDS: LIPITOR PO SCH (08:31)
[2016-11-11] MEDS: NON-FORMULARY MED PO SCH (09:39)
[2016-11-11] MEDS ORDERED: LR 1,000 ML ONE (10:12)
[2016-11-11] MEDS ORDERED: XYLOCAINE-MPF 2% ONE (10:12)
[2016-11-11] MEDS: CULTURELLE PO SCH ×2 (11:16→20:17)
[2016-11-11] MEDS ORDERED: IMODIUM PO ONE (13:04)
[2016-11-11] MEDS ORDERED: IMODIUM PO PRN (13:04)
[2016-11-11] MEDS: QUESTRAN LIGHT PO SCH ×2 (15:03→20:24)
--- NOTE | 2016-11-11 15:16 | ECHO REPORT ---
ORDER DATE: 11/08/2016 FINDINGS: 1. Right atrium is normal size at 3.5. 2. Mild tricuspid regurgitation. RV systolic pressure of 39. 3. Normal RV size and systolic function. 4. No significant pulmonic insufficiency. 5. Normal left atrial size at 3.2 cm. 6. There is no mitral prolapse. Mild mitral regurgitation. 7. Normal LV size, end-diastolic dimension of 3.9. Normal are. Mild left ventricular hypertrophy with a posterior and interventricular septal thickness is 0.8 and 1.2 cm respectively. Normal LV systolic function with a calculated EF of 60% with normal wall motion. 8. Aortic valve opens well. There is no evidence of stenosis or insufficiency. 9. Aorta appears normal visualized segments. 10. No pericardial effusion seen. cc: MD Patti Ibarra CRNP
--- NOTE | 2016-11-11 17:02 | PROGRESS NOTE ---
DATE: 11/11/2016 SUBJECTIVE: The patient states that he is having a little bit of pain in his left knee, but otherwise is feeling okay. The patient also reports that he has been having several bouts of diarrhea since admission. He denies having any abdominal pain. OBJECTIVE: Vital Signs: Temperature 97.8 degrees, blood pressure 123/65, heart rate 100, respirations 20, O2 saturations 100% on room air. General: This is an elderly male, lying in bed, in no acute distress. Head: Normocephalic, atraumatic. Heart: S1, S2. Normal. Tachycardic. Lungs: Clear to auscultation bilaterally. No wheezing, no rales. No rhonchi. Abdomen: Positive bowel sounds. Soft, nontender, nondistended. Extremities: No edema. No cyanosis. No calf tenderness. Neurologic: The patient is alert and oriented x3. LABORATORY: White blood cell count 14, hemoglobin 11, hematocrit 33, platelets 532,000. Sodium 137, potassium 4.4, chloride 98, CO2 23, BUN 12, creatinine 0.6, glucose 172, calcium 9.1. ASSESSMENT AND PLAN: 1. Neck abscess, status post incision and drainage secondary to methicillin sensitive Staphylococcus aureus. The patient has been switched to cefazolin. Further management as per Dr. Dykes. 2. Methicillin sensitive Staphylococcus aureus bacteremia. The patient is now on cefazolin as directed by Dr. Dykes. 3. Left knee synovitis. We will follow up on the results of the fluid culture from the knee. Continue on the current antibiotic therapy. 4. Diarrhea. Patient's stool by a is negative for Clostridium difficile. We will start the patient on Questran and p.r.n. Imodium. We will also add lactobacillus since the patient is on antibiotic therapy. 5. Diabetes mellitus type 2. Continue on sliding scale insulin. 6. Hypertension, controlled. Continue on metoprolol. 7. Deep vein thrombosis prophylaxis. We will start the patient on Lovenox. cc: Zaria Hart MD
[2016-11-11] MEDS: LOVENOX SUBQ SCH (17:06)
[2016-11-11] MEDS: ZANAFLEX PO SCH (20:17)
[2016-11-11] MEDS: TYLENOL PO PRN (20:23)
[2016-11-12] MEDS: NORCO-5 PO PRN ×3 (01:21→16:27)
[2016-11-12] MEDS: KEFZOL 2 GM/D5W 2 GM/50 ML IVPB IV SCH ×4 (03:03→20:54)
[2016-11-12 04:59] LABS: MANUAL DIFF NEEDED? NO
[2016-11-12 05:04] LABS: BASO% 0.5 % (0.0-0.8); EOS# 0.18 X1000 (0.0-0.7); EOS% 1.3 % (0.0-10.0); HEMATOCRIT 34.9 % (42.0-52.0); HEMOGLOBIN 11.9 g/dL (14.0-18.0); IMM GRAN# 0.32 X1000 (0.0-0.04); IMM GRAN% 2.3 % (0.0-0.5); LYMPH# 1.71 X1000 (1.2-3.4); LYMPH% 12.1 % (20.5-51.1); MCH 30.2 PG (27-31); MCHC 34.1 g/dL (33-37); MCV 88.6 FL (81-99); MONO# 1.26 X1000 (0.11-0.59); MONO% 8.9 % (1.7-9.3); MPV 9.9 FL (7.4-10.4); NEUT% 74.9 % (42.2-75.2); PLT 531 X1000 (130-400); RBC 3.94 XMIL (4.7-6.1)
[2016-11-12 05:44] LABS: AGAP 16; BUN 11 mg/dL (8-22); CHLORIDE 96 mmol/L (98-107); COSMO 284; POTASSIUM 3.7 mmol/L (3.5-5.1); SODIUM 138 mmol/L (136-145); TCO2 26 mmol/L (25-35)
--- NOTE | 2016-11-12 06:30 | PROGRESS NOTE ---
DATE: 11/12/2016 SUBJECTIVE: The patient is doing okay. No major issues. OBJECTIVE: Vital Signs: Patient is currently afebrile. His vital signs are stable. General: No acute distress. Neck: Less swollen. The area of his left clavicle appears to be less swollen also. The erythema is improving. Cardiovascular: Regular rate and rhythm. Lungs: Grossly clear. Abdomen: Soft, nontender, nondistended. LABORATORY: White blood cell count 14. He does have wound cultures that came back Staphylococcus aureus. He also is blood cultures that came back Staphylococcus aureus. ASSESSMENT AND PLAN: A 56-year-old male status post incision and drainage of neck abscess with mediastinal abscess now with bacteremia. 1. Status post incision and drainage. At this time, patient is clinically doing well. I do not think I have to do anything with his left collar bone. At this time, we will get the nurses to pack is every day, but just slightly. I suspect he will likely need a peripherally inserted central catheter line with long-term antibiotics. I suspect that a central line or Srivastava catheter in his neck would be quickly contaminated. I discussed this with Dr. Dykes. 2. Left knee swelling. So far negative workup. 3. Bacteremia at this time. See above, but likely the same organism as his neck. cc: Oziel Hawk MD
[2016-11-12] MEDS: HUMULIN R SUBQ SCH ×4 (06:47→20:54)
--- NOTE | 2016-11-12 06:49 | PROGRESS NOTE ---
DATE: 11/12/2016 PRESENT ILLNESS: The patient has an oxacillin sensitive Staphylococcus aureus bacteremia which appeared to originate from abscesses in the neck and chest. It should be noted that the infection in the neck and chest did come very close to involving the aorta and clavicle, and possibly sternum. Also, the patient had significant pain in his knee. There was a thought that possibly the knee was infected too but thus far the synovial fluid is sterile and the fluid that Dr. Garvin tello off was clear, thus making septic arthritis unlikely. MEDICATIONS: Yesterday, I switched the patient to Ancef 2 g IV every 8 hours. This will be day 1 of treatment with it. PHYSICAL EXAMINATION: Vital Signs: Temperature is 97.9 degrees, pulse 93, respirations 20, blood pressure 118/67. General: This is a fairly healthy-appearing, middle-aged male. He is in no acute distress. Thorax: The patient's incision at the top of his chest has purulent drainage. There also is some erythema at that area. Lungs: Clear to auscultation. Cardiovascular: Regular heart rate. Abdomen: Soft and nontender. Extremities: The left knee is less swollen than it was prior to the arthrocentesis. LAB AND X-RAY: The patient's CBC today shows a white count of 14,100, hemoglobin 11.9, and platelet count 531,000. Culture from the knee is sterile. Repeat blood cultures are negative. The patient's creatinine is 0.6. GFR is greater than 60. The patient had immunoglobulin levels drawn, and IgG and IgA were normal. Antibody to HIV was nonreactive. ASSESSMENT AND PLAN: I plan to treat the patient for 6 weeks with intravenous cefazolin starting today as day 1. I have put in a consult for [facility] to see the patient and supply his antibiotic. Repeat blood cultures were drawn today and if they are sterile, I will order for a PICC to be placed. I think once the patient has his PICC in place, from an infectious disease point of view, he could be discharged home to continue his intravenous antibiotic therapy. The patient's comorbidities, the main one is that he is diabetic. Also, the patient reported an insect bite on his leg earlier than his admission at this hospital and possibly a transient bacteremia occurred from that bite which possibly caused the patient to have the abscesses. I think this scenario would be unlikely, however. cc: Ivan Dykes MD
[2016-11-12] MEDS: NEURONTIN PO SCH ×3 (09:28→20:54)
[2016-11-12] MEDS: LIPITOR PO SCH (09:28)
[2016-11-12] MEDS: LOPRESSOR PO SCH (09:28)
[2016-11-12] MEDS: CULTURELLE PO SCH ×2 (09:28→20:54)
[2016-11-12] MEDS: QUESTRAN LIGHT PO SCH ×3 (09:28→16:27)
[2016-11-12] MEDS: PRILOSEC PO SCH (09:28)
[2016-11-12] MEDS: NON-FORMULARY MED PO SCH (09:29)
[2016-11-12] MEDS: PERICOLACE PO SCH ×2 (09:56→20:54)
--- NOTE | 2016-11-12 15:51 | PROGRESS NOTE ---
DATE: 11/12/2016 SUBJECTIVE: The patient is feeling well. He has no complaints. Still having pain with the abscesses. No fever no chills. No nausea, vomiting, or diarrhea. Packing was changed this morning. OBJECTIVE: Vital Signs: Blood pressure 113/66, pulse of 91, respirations 14, temperature 98.6 degrees, saturation of 97% on room air. General Appearance: Well-developed well-nourished thin white male in no acute distress. HEENT: Anicteric. Clear conjunctivae. Neck: No Packing and dressing in place at the clavicle centrally, mild drainage. Cardiovascular: S1, S2. Normal rate and rhythm. No murmur, rubs, or gallops. Pulmonary: Clear to auscultation bilaterally. GI: Soft, nontender, nondistended. Normoactive bowel sounds Musculoskeletal: No clubbing, cyanosis, or edema. LABORATORY: His white count today 14.1, hemoglobin 11.9, hematocrit of 34.9, platelets of 531,000. Chemistry: Sodium 138, potassium 3.7, chloride 96, bicarb is 26, BUN 11, creatinine 0.6, glucose of 263. ASSESSMENT AND PLAN: This is a 56-year-old white male, admitted to the hospital for an abscess on his chest. 1. Abscess, status post incision and drainage with packing. General Surgery is following. Culture grew out methicillin sensitive Staphylococcus aureus. The patient is on Ancef. Infectious Disease is following. Infectious Disease is not planning to do a antibiotics we will continue with dressing change for now and we will place a PICC for IV antibiotics. Probably going to be a few more days before the patient can go home. Make sure that we can get home health. The patient family has to pack the wound. 2. Hyperlipidemia. We will continue Lipitor. 3. History of vertigo. Continue Antivert. 4. Hypertension. Continue Lipitor. 5. Gastroesophageal reflux disease. Continue Prilosec. 6. Deep vein thrombosis prophylaxis. The patient on Lovenox. CODE STATUS: The patient is a full code.
[2016-11-12] MEDS: LOVENOX SUBQ SCH (16:27)
[2016-11-12] MEDS: ZANAFLEX PO SCH (20:54)
[2016-11-13] MEDS: KEFZOL 2 GM/D5W 2 GM/50 ML IVPB IV SCH ×6 (03:25→21:33)
[2016-11-13 05:05] LABS: MANUAL DIFF NEEDED? NO
[2016-11-13 05:44] LABS: AGAP 14; BUN 10 mg/dL (8-22); CALCIUM 8.8 mg/dL (8.8-10.2); CHLORIDE 95 mmol/L (98-107); COSMO 279; POTASSIUM 4.3 mmol/L (3.5-5.1); SODIUM 136 mmol/L (136-145); TCO2 27 mmol/L (25-35)
[2016-11-13 05:51] LABS: BASO% 0.4 % (0.0-0.8); EOS# 0.21 X1000 (0.0-0.7); EOS% 1.5 % (0.0-10.0); HEMATOCRIT 33.2 % (42.0-52.0); IMM GRAN# 0.27 X1000 (0.0-0.04); LYMPH# 1.49 X1000 (1.2-3.4); LYMPH% 10.8 % (20.5-51.1); MCH 29.9 PG (27-31); MCHC 33.1 g/dL (33-37); MCV 90.2 FL (81-99); MONO# 1.26 X1000 (0.11-0.59); MONO% 9.2 % (1.7-9.3); MPV 10.1 FL (7.4-10.4); NEUT% 76.1 % (42.2-75.2); PLT 503 X1000 (130-400); RBC 3.68 XMIL (4.7-6.1)
[2016-11-13] MEDS: NORCO-5 PO PRN (05:51)
--- NOTE | 2016-11-13 06:12 | PROGRESS NOTE ---
DATE: 11/13/2016 SUBJECTIVE: Patient doing well. No major issues. OBJECTIVE: Vital Signs: Patient is currently afebrile. His vital signs are stable. General Examination: No acute distress. Neck: Less swollen. Area in his left clavicle appears to be continuing to improve. Erythema overall is improving. Cardiovascular: Regular rate and rhythm. Lungs: Clear. Abdomen: Soft, nontender, nondistended. Laboratory: Pending as of right now. Blood cultures from the repeat blood cultures are still pending. ASSESSMENT AND PLAN: A 56-year-old, male status post incision and drainage of neck and mediastinal abscess, now with bacteremia. 1. Status post incision and drainage. At this time, the patient is doing well. We will continue wet-to-dry dressing changes. We will defer antibiotic duration and peripherally inserted central catheter line to Dr. Dykes. We are awaiting the new blood cultures. 2. Left knee swelling. So far negative workup. 3. Bacteremia at this time. See above. cc: Oziel Hawk MD
[2016-11-13] MEDS: HUMULIN R SUBQ SCH ×4 (06:25→21:33)
--- NOTE | 2016-11-13 06:59 | PROGRESS NOTE ---
DATE: 11/13/2016 PRESENT ILLNESS: Patient has an oxacillin sensitive Staphylococcus aureus bacteremia with associated abscesses in the neck and chest. The patient's left knee has gotten much worse. It is much more swollen and painful. Even though the synovial fluid obtained earlier was clear and the culture on it was negative, I still think the knee is infected. Possibly gout may be another possibility but I think infection is more likely. MEDICATIONS: The patient is on Ancef 2 g IV every 8 hours. This is day 2 of treatment with it. PHYSICAL EXAMINATION: Vital Signs: Temperature is 97.9 degrees, pulse 97, respirations 14, blood pressure 114/65. General: This is a fairly healthy-appearing, middle-aged male. He is in no acute distress. Thorax: The patient's drain site in the upper part of his chest still has purulent drainage but there is less erythema. The swelling on the chest also is persisting. Lungs: Clear to auscultation. Cardiovascular: Heart rate is regular. Abdomen: Soft and nontender. Extremities: The left knee now is more swollen than it had been and also it is more painful for the patient when he moves it. LAB AND X-RAY STUDIES: Repeat blood cultures are pending. Cultures from the knee thus far are sterile. CBC today shows a white count of 13,740, hemoglobin 11, and platelet count 503,000. Creatinine is 0.6. GFR is greater than 60. ASSESSMENT AND PLAN: The patient has Staphylococcus aureus bacteremia with abscesses in the chest. Since the abscesses were very near bone and the aorta, I think we should treat as if they were involved, which would mean 6 weeks of intravenous antibiotics. Furthermore, on the patient's left knee, I am going to ask Dr. Garvin if he would look at it again and possibly consider washing it out. If he will agree to that, I will send the fluid for cell count, culture, and crystals. I also last Dr. Garvin if he could get a synovial biopsy. Because I think the knee is involved, the patient also would need 6 weeks of intravenous antibiotics for this. The patient's main comorbidity is that he is diabetic. Possibly, there was an insect bite on his leg that may have been a portal of entry for the bacteremia. cc: Ivan Dykes MD
--- NOTE | 2016-11-13 08:21 | OPERATIVE NOTE ---
PROCEDURE DATE: 11/13/2016 PROCEDURE: Arthrocentesis left knee. PREOPERATIVE DIAGNOSIS: Synovitis left knee. POSTOPERATIVE DIAGNOSIS: Synovitis left knee. SURGEON: Steve Garvin MD. ANESTHESIA: None. COMPLICATION: None. PROCEDURE IN DETAIL: A 56-year-old male with recurrent synovitis of the left knee, presents for arthrocentesis. The risks and benefits were discussed. Patient is willing to proceed. The lateral aspect suprapatellar pouch was prepped with alcohol prep. An 18-gauge needle with a 20 mL syringe was then introduced in the joint. Roughly 24 mL of relatively clear straw-colored joint fluid was aspirated. This was then removed and the area covered with a Band-Aid without complications. The aspirate was sent for cultures, cell count, Gram stain, and crystals. No complications were noted. The patient tolerated the procedure well without difficulty. cc: Pako Garvin MD
[2016-11-13] MEDS: LIPITOR PO SCH (08:56)
[2016-11-13] MEDS: PRILOSEC PO SCH (08:56)
[2016-11-13] MEDS: NEURONTIN PO SCH ×3 (08:56→21:33)
[2016-11-13] MEDS: CELEBREX PO SCH (08:57)
[2016-11-13] MEDS: CULTURELLE PO SCH ×2 (08:57→21:33)
[2016-11-13] MEDS: PERICOLACE PO SCH ×2 (08:57→21:32)
[2016-11-13] MEDS: LOPRESSOR PO SCH (08:57)
[2016-11-13] MEDS: QUESTRAN LIGHT PO SCH ×3 (09:00→16:51)
[2016-11-13] MEDS: NON-FORMULARY MED PO SCH (09:34)
[2016-11-13 10:12] LABS: DIFF NEEDED? YES; WBC BF 8470 /cumm
[2016-11-13 12:00] LABS: MONOS 10 %; POLYS 90 %
--- NOTE | 2016-11-13 16:30 | PROGRESS NOTE ---
DATE: 11/13/2016 SUBJECTIVE: The patient is feeling well, has no complaint. No fever. No chills. Getting his packing and dressing changes every morning. OBJECTIVE: Vital Signs: Blood pressure 107/60, pulse of 92, respiration 18, temperature 97.6 degrees. Saturation of 96% room air. General Appearance: Thin, white male in no acute distress. HEENT: Anicteric sclerae. Clear conjunctivae. Neck: Supple. No JVD. No bruit. Cardiovascular: S1, S2. Normal rate and rhythm. No murmur, rubs, or gallops. Chest: He has a dressing in place right below his thoracic inlet. Pulmonary: Clear to auscultation bilaterally. GI: Soft, nontender, nondistended. Normoactive bowel sounds. Musculoskeletal: Left knee effusion, status post TAP again by Orthopedics today. Assessment and plan. LABORATORY: White count 13.74, hemoglobin 11, hematocrit of 33.2, platelets of 503,000. Chemistry: Sodium is 137, potassium 4.3, chloride 95, bicarb 27, BUN 10, creatinine 0.6. Glucose of 235. ASSESSMENT AND PLAN: A 56-year-old admitted to the hospital for abscess right on his thorax ended status post incision and drainage with packing. 1. Abscess with culture growing methicillin sensitive Staphylococcus aureus. Continue packing daily per Surgery recommendation. Infectious Disease is following. The patient is on Ancef. 2. Left knee effusions status post arthrocentesis twice. Cultures still have remained negative thus far. Synovial fluid . 470 white count with 90% of polynuclear and 10 of monocyte. We will continue his Ancef for now. Not suspecting a septic joint per Orthopedics. 3. Diabetes. Continue sliding scale insulin. 4. Chronic pain. Continue Zanaflex, Celebrex and hydrocodone as well. 5. Gastroesophageal reflux disease, continue proton pump inhibitor. 6. Code Status: Patient is a full code.
[2016-11-13] MEDS: LOVENOX SUBQ SCH (16:45)
[2016-11-13] MEDS: ZANAFLEX PO SCH (21:33)
[2016-11-14] MEDS: NORCO-5 PO PRN (02:53)
[2016-11-14 05:52] LABS: AGAP 11; BUN 11 mg/dL (8-22); CHLORIDE 95 mmol/L (98-107); COSMO 278; POTASSIUM 4.7 mmol/L (3.5-5.1); SODIUM 137 mmol/L (136-145); TCO2 31 mmol/L (25-35)
--- NOTE | 2016-11-14 06:18 | PROGRESS NOTE ---
DATE: 11/14/2016 SUBJECTIVE: Patient doing well. No major issues. OBJECTIVE: Vital Signs: Patient is currently afebrile. His vital signs are stable. General Examination: No acute distress. Neck: Less swollen. Still has some mild purulence draining from his wound. Erythema is improving. Cardiovascular: Regular rate and rhythm. Lungs: Grossly clear. Abdomen: Soft, nontender, nondistended. Laboratory: Most recent blood cultures do not show any growth. ASSESSMENT AND PLAN: A 56-year-old, male status post incision and drainage of neck and mediastinal abscess, now with bacteremia. 1. Status post incision and drainage of neck abscess. At this time, patient is doing well. Continue wet-to-dry dressing changes. 2. Left knee swelling. Negative workup so far. 3. Bacteremia. At this time, the patient potentially could have a peripherally inserted central catheter line inserted with home antibiotics. I would avoid any central line in his neck, given the contamination risk. cc: Oziel Hawk MD
[2016-11-14] MEDS: HUMULIN R SUBQ SCH ×4 (06:26→20:56)
[2016-11-14] MEDS: KEFZOL 2 GM/D5W 2 GM/50 ML IVPB IV SCH ×4 (06:26→23:25)
--- NOTE | 2016-11-14 07:05 | PROGRESS NOTE ---
DATE: 11/14/2016 PRESENT ILLNESS: The patient has an oxacillin sensitive Staphylococcus aureus bacteremia with associated abscesses in the neck and chest. The patient's knee swelled up more in the past few days and, yesterday, Dr. Garvin performed another arthrocentesis of the knee. This morning, the knee is less swollen, but more than it had been. MEDICATIONS: This is day 3 of treatment with Ancef in a dose of 2 g IV every 8 hours. PHYSICAL EXAMINATION: Vital Signs: Temperature is 98.2 degrees, pulse 83, respirations 16, blood pressure 115/66. Generally, this is a somewhat ill-appearing, middle-aged male. He is in no acute distress. Lungs clear to auscultation. Cardiovascular: Regular heart rate. Thorax: The drainage in the upper part of the chest is still purulent. Abdomen soft and nontender. Cardiac: Heart rate is regular. Lungs clear to auscultation. Extremities: The patient's left knee is less swollen than it was yesterday. LABORATORY DATA AND X-RAY: The patient's creatinine is 0.7. The GFR is greater than 60. The synovial fluid white count was 8470. The synovial fluid was negative for crystals. Gram stain of the synovial fluid showed no bacteria. ASSESSMENT AND PLAN: The patient has a Staphylococcus aureus bacteremia with abscesses as mentioned above. It does not appear that the patient's left knee is infected in view of the fact that the fluid still looks clear and the white cell count was only 8470. If by chance there still is some infection, it will be treated by the fact that the patient is on IV Ancef and will be for a long treatment course. The patient's main comorbidity is that he is a diabetic. Also, there is an insect bite that occurred to the patient prior to the onset of the abscesses. The area turned red, but I think it would be unlikely that it is the source of the patient's bacteremia. For right now, my plan is to continue Ancef for a total of 6 weeks. The patient's blood cultures are sterile, so I think we can go ahead and get a PICC inserted in the patient. We have already put in a consult for [facility] to see him to set up his treatment at home. From Infectious Disease point of view, I think the patient can go home after he gets his PICC in. I will be seeing the patient in 3 weeks after discharge. cc: Ivan Dykes MD
[2016-11-14] MEDS: CULTURELLE PO SCH ×2 (08:11→20:48)
[2016-11-14] MEDS: CELEBREX PO SCH (08:11)
[2016-11-14] MEDS: QUESTRAN LIGHT PO SCH ×3 (08:11→16:20)
[2016-11-14] MEDS: NON-FORMULARY MED PO SCH (08:11)
[2016-11-14] MEDS: NEURONTIN PO SCH ×3 (08:11→20:48)
[2016-11-14] MEDS: LIPITOR PO SCH (08:12)
[2016-11-14] MEDS: PRILOSEC PO SCH (08:12)
[2016-11-14] MEDS: PERICOLACE PO SCH ×2 (08:12→20:57)
[2016-11-14] MEDS: LOPRESSOR PO SCH (08:12)
[2016-11-14 08:13] LABS: INR 1.04
[2016-11-14] MEDS ORDERED: NS 250 ML ONE (08:36)
--- NOTE | 2016-11-14 15:02 | PROGRESS NOTE ---
DATE: 11/14/2016 SUBJECTIVE: The patient is feeling well. He is ready to go home, but is still having a little knee pain and has not been walking. Denies having any fever or chills. Denies having any nausea, vomiting, or diarrhea. The patient was seen and examined. OBJECTIVE: Vital signs: Blood pressure 96/56, pulse of 81, respiration 18, temperature 98 degrees, sat 95% room air. General appearance: Thin, white male, in no acute distress. HEENT: Anicteric sclerae. Clear conjunctivae. Neck: Supple. No JVD. No bruit. Cardiovascular: S1, S2 normal rate and rhythm. No murmur, rubs, or gallops. Pulmonary: Clear to auscultation bilaterally. GI: Soft, nontender, nondistended. Normoactive bowel sounds. Musculoskeletal: No clubbing, cyanosis, or edema. LABORATORY: Chemistry: Sodium 137, potassium 4.7, chloride 95, bicarb 31, BUN 11, creatinine 0.7, glucose 189. ASSESSMENT AND PLAN: 1. This is a 56-year-old white male admitted with thoracic inlet site cellulitis and abscess, status post incision and drainage. Dr. Hawk saw the patient. Okay for him to be discharged from his standpoint. We have been teaching the patient how to do dressing changes daily. We will see the patient back in the office. We will continue antibiotics. Dr. Silva is seeing the patient and recommended a total of 6 weeks of antibiotics. He was seen back in the office as well. The patient's PICC line in and antibiotics arranged. We will plan to discharge the patient home tomorrow if he continues to do well. 2. Hypertension. We will hold his Lopressor. 3. Diabetes. Continue sliding scale insulin. 4. Hypertension. We will hold his metoprolol. 5. Left knee pain. So far workup has been negative. The patient has been feeling better. The knee swelling has been improving. We will get the patient up and get him moving. If he is doing well, we will discharge the patient home tomorrow. 6. Hyperlipidemia. Continue Lipitor. 7. Code Status: The patient is a full code.
[2016-11-14] MEDS: LOVENOX SUBQ SCH (16:20)
[2016-11-14] MEDS: ZANAFLEX PO SCH (20:49)
--- NOTE | 2016-11-15 06:00 | PROGRESS NOTE ---
DATE: 11/15/2016 SUBJECTIVE: Patient doing okay. No issues. OBJECTIVE: Vital Signs: Patient is currently afebrile. His vital signs are stable. General: No acute distress. Neck: Less swollen. There is some mild purulence draining from his wound. Erythema is improving. Cardiovascular: Regular rate and rhythm. Lungs: Grossly clear. Abdomen: Soft, nontender, and nondistended. Extremities: PICC line in place. ASSESSMENT AND PLAN: A 56-year-old male status post incision and drainage with neck abscess with mediastinal abscess. 1. Status post incision and drainage of neck abscess. At this time, patient is doing well. Continue wet-to-dry dressing changes. I need to see the patient in my office in 1-2 weeks. 2. Bacteremia at this time. Patient has had a PICC line inserted. He is going to be getting antibiotics for a long duration per Dr. Dykes's recommendations. We will defer to Dr. Dykes. cc: Oziel Hawk MD
[2016-11-15] MEDS: NORCO-5 PO PRN (06:24)
[2016-11-15] MEDS: KEFZOL 2 GM/D5W 2 GM/50 ML IVPB IV SCH (06:25)
[2016-11-15] MEDS: HUMULIN R SUBQ SCH ×2 (06:32→12:02)
[2016-11-15 07:14] VITALS: BP 111/71
--- NOTE | 2016-11-15 07:54 | PROGRESS NOTE ---
DATE: 11/15/2016 PRESENT ILLNESS: The patient has an oxacillin sensitive Staphylococcus aureus bacteremia and abscesses in the neck which extended into the chest. The patient's left knee continues to swell, but it remains negative on culture and had only had approximately 8000 white cells in the synovial fluid. The fluid was also negative for gout. MEDICATIONS: This is day 4 of treatment of the patient with Ancef. PHYSICAL EXAMINATION: Vital Signs: Temperature is 98.1 degrees, pulse 98, respirations 18, blood pressure 111/71. Generally, this is a somewhat ill-appearing, middle-aged male. He is in no acute distress at this time. Chest: There is an area just below the clavicle that is somewhat fluctuant where he has an abscess. It seems to me that the area is slightly smaller. Lungs clear to auscultation. Cardiovascular: Regular heart rate. Abdomen soft and nontender. Bones, joints, muscles: The patient's left knee is still swollen, but I think it is less so than it was when he first came in. The exact cause of the swelling of the knee is uncertain to me. LABORATORY AND RADIOLOGY: No new lab or radiologic study. ASSESSMENT AND PLAN: The plan is to continue treating with Ancef for the patient's bacteremia with chest abscesses. Comorbidity is diabetes mellitus. Also, there was a question of whether an insect bite could have been the portal of entry where the patient became bacteremic with Staphylococcus aureus. cc: Ivan Dykes MD [email or web address]
[2016-11-15] MEDS: NEURONTIN PO SCH (08:31)
[2016-11-15] MEDS: CULTURELLE PO SCH (08:31)
[2016-11-15] MEDS: PERICOLACE PO SCH (08:31)
[2016-11-15] MEDS: PRILOSEC PO SCH (08:31)
[2016-11-15] MEDS: LIPITOR PO SCH (08:32)
[2016-11-15] MEDS: CELEBREX PO SCH (08:32)
[2016-11-15] MEDS: NON-FORMULARY MED PO SCH (08:32)
[2016-11-15] MEDS: QUESTRAN LIGHT PO SCH (08:32)
--- NOTE | 2016-11-15 11:06 | PROGRESS NOTE ---
DATE: 11/15/2016 SUBJECTIVE: The patient is feeling well, but is still concerned about his left knee. The patient has apparently taken a lot of medication for his left knee in the past for effusion. No fever, no chills. No nausea, vomiting, or diarrhea. OBJECTIVE: Vital Signs: Blood pressure 111/71, pulse of 98, respirations 18, temperature 98.1 degrees, saturation 100% room air. General Appearance: A thin white male, in no acute distress. HEENT: Anicteric. Clear conjunctivae. Neck: Supple. No JVD. No bruit. Cardiovascular: S1 and S2, normal rate and rhythm. No murmur, rubs, or gallops. Pulmonary: Clear to auscultation bilaterally. Gastrointestinal: Soft, nontender, nondistended. Normoactive bowel sounds. Musculoskeletal: No clubbing, cyanosis, or edema. LABORATORY DATA: The arthrocentesis fluid was negative for any crystal. White count is about 8000 with a left shift. WBC 13.74, hemoglobin 11, hematocrit of 33.1, platelets of 503,000. Chemistry, none was ordered for today. ASSESSMENT AND PLAN: A 56-year-old white male who was admitted to the hospital for an abscess and cellulitis to his upper chest. 1. Abscesses on his upper chest. Status post incision and drainage. Culture grew out methicillin- sensitive Staphylococcus aureus. The patient is on [facility]. We will follow him after discharge. Dr. Dykes will see him back in the hospital. He is going to be on it for about 6 weeks. 2. Left knee effusions. This appears to be very benign, no redness, no evidence of infections, probably secondary to arthritis. The patient is on multiple on nonsteroidal anti-inflammatory medications at home. I stopped his diclofenac, Naprosyn, and Celebrex and put him on Indocin 3 times a day and have him to follow with his primary care physician in 1 to 2 weeks. Otherwise, the patient is doing well. We will discharge the patient home today.
--- NOTE | 2016-11-15 12:20 | DISCHARGE SUMMARY ---
ADMISSION DATE: 11/08/2016 DISCHARGE DATE: 11/15/2016 CONSULTATIONS: 1. Dr. Oziel Hawk with General Surgery. 2. Dr. Garvin with orthopedics. 3. Dr. Ivan Dykes with Infectious Disease. PERTINENT PROCEDURES: 1. Head neck and chest CT. Head no hemorrhage or mass. Negative exam. Neck showed an abscess appearing lesion in the lower neck, anterior chest and mediastinum. Could represent mucormycosis infection. She had a solitary noncalcified nodule in the left upper lobe. Abdomen and pelvis findings consistent with pyelonephritis, fatty liver infiltration, constipation. 2. Echocardiogram showed an EF of 60% with normal wall motion. 3. Aspiration of left knee joint for synovitis of the left knee performed by Dr. Garvin. 4. Arthrocentesis of the left knee performed by Dr. Garvin. 5. I D of neck and mediastinum abscesses performed by Dr. Hawk. DISCHARGE DIAGNOSES: 1. Thoracic inlet site cellulitis and abscess status post I D by Dr. Hawk. The patient has been released per surgical standpoint. He has been taught how to do b.i.d. dressing changes daily and Dr. Hawk will see him back in the office in 1 week. He will also continue on IV antibiotics through his PICC line. 2. Hypertension. Continue Lopressor with parameters to hold with heart rate less than 60 or systolic blood pressure less than 100. 3. Left knee pain with a negative workup so far. He has had aspiration done by Dr. Garvin with some improvement. 4. Hyperlipidemia, continue Lipitor. 5. Pyelonephritis improved with IV antibiotics. 6. Liver CA, liver enzymes have been negative. 7. Constipation with added stool softener. 8. Diarrhea with added Imodium and Culturelle, C diff negative. 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 10. Hyperlipidemia, continue statin. 11. Protein calorie malnutrition. Continue diabetic diet as well as supplementation with meals. HOSPITAL COURSE: Mr. Gold is a 56-year-old male patient of Dr. Ray. He carries a past medical history of hypertension, diabetes mellitus type 2, hyperlipidemia presented to the ED with swelling in his neck, sore throat, difficulty swallowing and shortness of breath. Apparently around 2 weeks ago he started having some left knee pain. He presented [facility] in which he was prescribed diclofenac and Zanaflex for arthritis. Prior to being sent home he was told that he was having a sore throat but not fully worked up. This past Friday prior to his admission he noticed swelling around his neck and in his chest that he had not noticed prior. He presented [facility] on the Friday again prior to his admission in which they performed an x-ray and sent him home with doxycycline and naproxen. The swelling increased. He had gone on to work. It was very noticeable and they sent him to the ED. His associated symptoms with dysphagia started approximately 2 weeks ago. Shortness of breath with activity, pain in the neck but denied fever chills. Had some nausea but no vomiting. Workup per the CT revealed he had an abscess in the lower neck, anterior chest and mediastinum, as well as an upper left lobe nodule. Other CTs revealed pyelonephritis and constipation. He did have a white count of 22,000. His blood sugars were 303 on admit. He was admitted to [facility] for close monitoring given his risk of reactive airway disease because the abscess was so close to his throat causing dysphagia and shortness of breath. He was started on IV antibiotics, a consult for General Surgery as well as Infectious Disease. The patient also had a consult with Dr. Garvin who did aspiration of the left knee and again an arthrocentesis of the left knee. He also underwent an I D of the neck and mediastinal abscess by Dr. Hawk. The patient does have an oxacillin-sensitive Staphylococcus area of bacteremia with associated abscesses in the neck and chest. The patient was continued on Ancef , received a PICC line and will continue Ancef for a total of 6 weeks. His blood cultures were sterile prior to his PICC line. [facility], as well as Home Health has been consulted through Dr. Ivan Dykes. He will be going home today with [facility] for his IV antibiotics with Ancef as well as [facility] with Home [facility]. Clinically, the patient has improved vital signs, temperature is 98.1 degrees, heart rate 98, respirations 18, blood pressure 111/71, O2 is 100% on room air. DISCHARGE MEDICATIONS: As per Dr. Garvey. The patient will also receive 6 weeks of Ancef with Dr. Ivan Dykes. DISCHARGE DIET: Diabetic with Glucerna shakes t.i.d. FOLLOW-UP: The patient will follow up with Dr. Ivan Dykes in 3 weeks. He will follow up with Dr. Oziel Hawk in 1-2 weeks. He has been educated thoroughly on his I D dressing changes. He will also follow up with Dr. Garvin as indicated for his left knee, as well as his primary care physician, Dr. Fernando Ray in 7-10 days. The patient can return to the ED for any worsening of symptoms. DISCHARGE TIME: 30 minutes. Dictated by SHELBIE Gage for Kamlesh Garvey MD cc: Fernando Ray MD Addendum: I personally evaluated and examined the patient in conjunction to the DRIVER [employer]ESM[employer] and agreed with her disposition MTDD
== END 2016-11-15 12:03 | disposition home health service (06) ==
LOC: ED 08:42 → 3S 15:43 → SUATTDRO 15:43
PROVIDERS: ATTEND Internal Medicine